=== PATIENT | female | born 1955 | race Caucasian/White ===

== ENCOUNTER 2016-05-28 20:56 | Inpatient (IN) | payer MEDICARE, MEDICAID ==
--- NOTE | 2016-05-28 21:02 | ED Physician Chart ---
Chief Complaint/HPI - Patient Information Date Seen:: 05/28/16 Time Seen:: 21:00 Chief Complaint:: cough History of Present Illness:: 60-year-old female history of COPD, [facility] a [facility] rehabilitation with acute, constant, worse at night, cough 6 weeks. Has associated shortness of breath and throat pain with coughing fits. Also has associated headache. Has had some dark blood in her mucus after a coughing fit. Allergies:: Allergies Allergy/AdvReac Type Severity Reaction Status Date / Time cefazolin Allergy Verified 10/26/15 13:47 Penicillins [PCN] Allergy Verified 10/26/15 13:47 silver sulfadiazine Allergy Verified 10/26/15 13:47 [From Silvadene] Sulfa (Sulfonamide Allergy Verified 10/26/15 13:47 Antibiotics) Historian:: Patient, EMS Review:: Nurse's Note Reviewed, EMS run form Reviewed, Transfer documents Reviewed Review of Systems - Review of Systems Other: Complete system review otherwise unremarkable except as noted in history of present illness. Past Medical History - Past Medical History Past Medical History: HTN, Asthma/COPD Family History: None Social History: Non Smoker, No Alcohol, No Drug Use, Care Facility Surgical History: , other (multiple skin grafts) Psychiatricy History: None Medication: Reviewed Family Medical History - Family Member Mother History Unknown: Yes Ethnicity: Non- Living Status: Unknown Hx Family Cancer: (Unknown) Hx Family Coronary Artery Disease: (Unknown) Hx Family Congestive Heart Failure: (Unknown) Hx Family Hypertension: (Unknown) Hx Family Stroke: (Unknown) Hx Family Diabetes: (Unknown) Hx Family Seizures: (Unknown) Hx Family Dementia: (Unknown) Hx Family AIDS: (Unknown) Hx Family HIV: No Hx Family COPD: (Unknown) Hx Family Hepatitis: (Unknown) Hx Family Psychiatric Problems: (Unknown) Hx Family Tuberculosis: (Unknown) Physical Exam - Physical Examination Other:: INITIAL VITAL SIGNS: Reviewed by me GENERAL: Alert and interactive. In moderate respiratory distress with coughing fits. HEAD: Head is normocephalic and atraumatic EYES: EOMI. PERRL. No scleral icterus. No conjunctival injection ENT: Moist mucous membranes. NECK: Supple. No masses. Full range of motion RESPIRATORY: No tachypnea. Prolonged expiratory phase bilaterally with wet sounding cough on deep inspiration. No wheezing, rales, or rhonchi CV: Regular rate and rhythm. No murmurs, rubs, or gallops ABDOMEN: Soft, non-distended, non-tender. No guarding. No rebound. No masses. EXTREMITIES: No deformity. No cyanosis. No edema. SKIN: Warm and dry. No obvious rashes. NEUROLOGIC: Alert and oriented. Face is symmetric. Speech is normal. Moves all extremities equally. Motor and sensory distally intact. Labs/Radiology/EKG Results - Lab Results Results: Lab Results 05/28/16 05/28/16 05/28/16 Range/Units 21:58 21:58 21:58 WBC 9.0 (4.8-10.8) Th/cmm RBC 4.21 (3.80-5.10) Mil/cmm Hgb 12.0 (11.7-15.5) gm/dL Hct 35.5 D (35.0-45.0) % MCV 84.3 (81-100) fl MCH 28.5 (27.0-31.0) pg MCHC Differential 33.8 (28.0-36.0) pg RDW 13.5 (11.5-20.0) % Plt Count 217 (150-400) Th/cmm MPV 9.1 fl Neutrophils % 46.8 (40.0-80.0) % Lymphocytes % 35.4 (20.0-50.0) % Monocytes % 9.3 (2.0-10.0) % Eosinophils % 7.8 H (0.0-5.0) % Basophils % 0.7 (0.0-2.0) % PT 9.4 L (9.5-11.5) SECONDS INR 0.90 (0.5-1.4) PTT (Actin FS) 25.6 L (26.0-38.0) SECONDS Sodium 136 (136-145) mEq/L Potassium 3.4 L (3.5-5.1) mEq/L Chloride 104 (98-107) mEq/L Carbon Dioxide 28.5 (21.0-31.0) mEq/L Anion Gap 6.9 L (7.0-16.0) BUN 16 (7-25) mg/dL Creatinine 0.8 (0.6-1.2) mg/dL Est GFR ( Amer) > 60.0 (>90) ml/min Est GFR (Non-Af Amer) > 60.0 ml/min BUN/Creatinine Ratio 20.0 Glucose 136 H (70-105) mg/dL Whole Bld Lactic Acid (0.60-1.99) mmol/L Calcium 9.5 (8.6-10.3) mg/dL Total Bilirubin 0.2 L (0.3-1.0) mg/dL AST 13 (13-39) U/L ALT 10 (7-52) U/L Alkaline Phosphatase 83 (34-104) U/L Creatine Kinase 60 (30-223) U/L Total Protein 6.9 (6.0-8.3) gm/dL Albumin 3.9 (3.7-5.3) gm/dL Globulin 3.0 gm/dL Albumin/Globulin Ratio 1.3 (1.0-1.8) 05/28/16 Range/Units 21:58 WBC (4.8-10.8) Th/cmm RBC (3.80-5.10) Mil/cmm Hgb (11.7-15.5) gm/dL Hct (35.0-45.0) % MCV (81-100) fl MCH (27.0-31.0) pg MCHC Differential (28.0-36.0) pg RDW (11.5-20.0) % Plt Count (150-400) Th/cmm MPV fl Neutrophils % (40.0-80.0) % Lymphocytes % (20.0-50.0) % Monocytes % (2.0-10.0) % Eosinophils % (0.0-5.0) % Basophils % (0.0-2.0) % PT (9.5-11.5) SECONDS INR (0.5-1.4) PTT (Actin FS) (26.0-38.0) SECONDS Sodium (136-145) mEq/L Potassium (3.5-5.1) mEq/L Chloride (98-107) mEq/L Carbon Dioxide (21.0-31.0) mEq/L Anion Gap (7.0-16.0) BUN (7-25) mg/dL Creatinine (0.6-1.2) mg/dL Est GFR ( Amer) (>90) ml/min Est GFR (Non-Af Amer) ml/min BUN/Creatinine Ratio Glucose (70-105) mg/dL Whole Bld Lactic Acid 1.79 (0.60-1.99) mmol/L Calcium (8.6-10.3) mg/dL Total Bilirubin (0.3-1.0) mg/dL AST (13-39) U/L ALT (7-52) U/L Alkaline Phosphatase (34-104) U/L Creatine Kinase (30-223) U/L Total Protein (6.0-8.3) gm/dL Albumin (3.7-5.3) gm/dL Globulin gm/dL Albumin/Globulin Ratio (1.0-1.8) - Radiology Results Results: Single AP VIEW Portable Chest X-ray was interpreted independently and contemporaneously by Gertrudis Davis MD: No cardiomegaly Normal mediastinum No lung infiltrates No pneumothorax No soft tissue or bony abnormalities - EKG Interpretations Comments:: 12-lead EKG Interpretation by Gertrudis Davis MD: Normal Sinus Rhythm with ventricular rate of 86 beats per minute Normal axis Normal intervals No acute ST or T wave changes. No obvious STEMI ED Septic Shock - . Is Septic Shock (SBP<90, OR Lactate>4 mmol\L) present?: No Reassessment (Disposition) - Reassessment Reassessment:: This is a 60-year-old female coming in from a nursing facility with COPD. She' s been coughing for about 6 weeks with worsening symptoms. She has associated shortness of breath with the cough. Has a prolonged expiratory phase bilaterally. Her labs look better than she looks clinically. We gave IV Solu- Medrol, DuoNeb breathing treatment, IV azithromycin, IV 500 mL normal saline bolus. Given that she's been being treated with outpatient therapy but has not been improving I discussed the case with the admitting physician. Patient is to be admitted for COPD exacerbation with failed outpatient therapy. Reassessment Condition:: Improved - Diagnosis Diagnosis:: COPD exacerbation Cephalalgia - Patient Disposition Discharge/Transfer:: Acute Care w/in this hosp Admitted to:: Med/Surg Admitting Medical Physician:: Giuseppe Ramos Time:: 21:41 Condition at Disposition:: Stable
[2016-05-28] MEDS ORDERED: Azithromycin 500 MG in Sodium Chloride 0.9% 250 ML IV ONE (21:04)
[2016-05-28] MEDS ORDERED: Albuterol/Ipratropium Neb 3 ML AERS HHN ONE ×2 (21:04→21:16)
[2016-05-28] MEDS ORDERED: Sodium Chloride 0.9% 500 ML IV ONE (21:06)
[2016-05-28] MEDS ORDERED: Codeine/Promethazine Susp 5 mL UDC PO STA (21:22)
[2016-05-28] MEDS ORDERED: Codeine/Promethazine Susp 5 mL UDC ONE (21:49)
[2016-05-28 22:12] LABS: % BASOPHILS 0.7 % (0.0-2.0); % EOSINOPHILS 7.8 % (0.0-5.0); % LYMPHOCYTES 35.4 % (20.0-50.0); % MONOCYTES 9.3 % (2.0-10.0); % NEUTROPHILS 46.8 % (40.0-80.0); MEAN CELL VOLUME 84.3 fl (81-100); MEAN CORPUSCULAR HEMOGLOBIN 28.5 pg (27.0-31.0); MEAN CORPUSCULAR HGB CONC 33.8 pg (28.0-36.0); MEAN PLATELET VOLUME 9.1 fl; NEUTROPHILE ABSOLUTE 4.2 Th/cmm (1.8-8.0); PLATELET COUNT 217 Th/cmm (150-400); RED BLOOD COUNT 4.21 Mil/cmm (3.80-5.10); RED CELL DISTRIBUTION WIDTH 13.5 % (11.5-20.0)
[2016-05-28 22:13] LABS: HEMATOCRIT 35.5 % (35.0-45.0)
[2016-05-28 22:20] LABS: INR 0.9 (0.5-1.4); PROTHROMBIN TIME (TEST) 9.4 SECONDS (9.5-11.5)
[2016-05-28] MEDS ORDERED: Fleet Enema 135 mL RC PRN (22:20)
[2016-05-28] MEDS ORDERED: Magnesium Hydroxide (MOM) 30 mL UDC PO PRN (22:20)
[2016-05-28] MEDS ORDERED: Magnesium Citrate 1.75 GM/300 mL Bottle PO PRN (22:20)
[2016-05-28] MEDS ORDERED: Albuterol Nebulizer 2.5mg/3mL HHN PRN (22:20)
[2016-05-28] MEDS ORDERED: Hydrocodone/APAP 5mg/325mg Tab PO PRN (22:20)
[2016-05-28] MEDS ORDERED: [UNRECOGNIZED DRUG - OTHER] PO PRN (22:20)
[2016-05-28] MEDS ORDERED: LEVALBUTEROL HCL 0.63 MG IH PRN (22:20)
[2016-05-28 22:25] LABS: ALB/GLOB RATIO 1.3 (1.0-1.8); ALKALINE PHOSPHATASE 83 U/L (34-104); ANION GAP 6.9 (7.0-16.0); BILIRUBIN,TOTAL 0.2 mg/dL (0.3-1.0); BUN - UREA NITROGEN 16 mg/dL (7-25); CALCIUM SERUM 9.5 mg/dL (8.6-10.3); CARBON DIOXIDE 28.5 mEq/L (21.0-31.0); CHLORIDE 104 mEq/L (98-107); CREATININE - SERUM 0.8 mg/dL (0.6-1.2); GLUCOSE 136 mg/dL (70-105); POTASSIUM SERUM 3.4 mEq/L (3.5-5.1); SGOT 13 U/L (13-39); SGPT/ALT 10 U/L (7-52); SODIUM SERUM 136 mEq/L (136-145)
[2016-05-28 22:58] VITALS: BP 135/70
[2016-05-28] MEDS ORDERED: Pneumococcal Vaccine 0.5 mL Vial IM ONE (23:16)
--- NOTE | 2016-05-29 04:44 | Admit Criteria Form ---
Admit Criteria Forms - Admit Criteria Diagnosis: COPD Clinical Indications for Admission to Inpatient Care (Place 'X' for any and all applicable criteria): Admission is indicated for ANY ONE of the following (1)(2)(3): [X ]I. Acute exacerbation by high-risk comorbidity (e.g., pneumonia, dysrhythmia, heart failure, pleural effusion, pneumothorax) or severe underlying COPD (e.g., steroid dependent) [ ]II. Inpatient admission required rather than observation care (see Chronic Obstructive Pulmonary Disease: Observation Care) because of ANY ONE of the following: [ ]a) New or pre-existing signs or symptoms of COPD (eg, dyspnea or Tachypnea at rest or with minimal activity) that persist despite outpatient and observation care treatment [ ]b) New-onset hypoxemia (room air SaO2 less than 90%, PO2 less than 60 mm Hg (8.0 kPa)) that persists despite outpatient and observation care treatment [ ]c) Worsening of pre-existing hypoxemia (eg, new or increased requirement for supplemental oxygen to maintain oxygenation at baseline level) that persists despite outpatient and observation care treatment, with oxygen treatment needs performable only in acute inpatient setting [ ]d) Hypercarbia (PCO2 greater than 40 mm Hg (5.3 kPa))-induced respiratory acidosis (pH less than 7.35) that persists despite outpatient and observation care treatment [ ]e) Supplemental oxygen or respiratory treatments for over 24 hours that are performable only in acute inpatient setting [ ]f) Chest tube placement with active evacuation (e.g., suction, drainage) (5) [ ]g) Other condition, treatment or monitoring requiring inpatient admission [ ]III. Planned invasive surgical or diagnostic procedures requiring acute- care hospitalization [ ]IV. Acute respiratory failure (e.g., uncompensated hypercarbia, severe hypoxemia) [ ]V. Severe comorbid condition (e.g., severe steroid myopathy, acute vertebral fracture) that has acutely worsened pulmonary function [ ]. Confusion state, lethargy, obtundation, stupor or coma Extended stay beyond goal length of stay may be needed for (31)(32): [ ]a ) Respiratory Failure. [ ]b) Severe or persisting hypoxemia or hypercarbia [ ]c) Severe or persistent dyspnea [ ]d) Comorbidities (e.g. chronic heart failure, atrial fibrillation with rapid response, pneumonia) [ ]e) Malnutrition The original [facility] content created by [facility] has been revised. The portions of the content which have been revised are identified through the use of italic text or in bold, and [facility] has neither reviewed nor approved the modified material. All other unmodified content is copyright [facility]. Please see references footnoted in the original [facility] edition 2016 Admit Criteria Met?: Yes
[2016-05-29] MEDS ORDERED: Potassium Chloride 20 mEq ER Tab PO ONE (06:38)
[2016-05-29] MEDS ORDERED: Hydrocodone/APAP 5mg/325mg Tab PO PRN (06:57)
[2016-05-29] MEDS ORDERED: Magnesium Citrate 1.75 GM/300 mL Bottle PO PRN (07:01)
[2016-05-29 07:14] LABS: % BASOPHILS 1.4 % (0.0-2.0); % EOSINOPHILS 0.5 % (0.0-5.0); % LYMPHOCYTES 12.7 % (20.0-50.0); % MONOCYTES 0.6 % (2.0-10.0); % NEUTROPHILS 84.8 % (40.0-80.0); HEMATOCRIT 39.2 % (35.0-45.0); HEMOGLOBIN 13.1 gm/dL (11.7-15.5); MEAN CELL VOLUME 84.8 fl (81-100); MEAN CORPUSCULAR HEMOGLOBIN 28.4 pg (27.0-31.0); MEAN CORPUSCULAR HGB CONC 33.5 pg (28.0-36.0); MEAN PLATELET VOLUME 9.1 fl; NEUTROPHILE ABSOLUTE 7.7 Th/cmm (1.8-8.0); PLATELET COUNT 265 Th/cmm (150-400); RED BLOOD COUNT 4.62 Mil/cmm (3.80-5.10); RED CELL DISTRIBUTION WIDTH 13.6 % (11.5-20.0); WHITE BLOOD COUNT 9.1 Th/cmm (4.8-10.8)
[2016-05-29 08:06] LABS: ALB/GLOB RATIO 1.3 (1.0-1.8); ALKALINE PHOSPHATASE 93 U/L (34-104); BILIRUBIN,TOTAL 0.3 mg/dL (0.3-1.0); BUN - UREA NITROGEN 17 mg/dL (7-25); BUN/CREATININE RATIO 18.9; CALCIUM SERUM 9.4 mg/dL (8.6-10.3); CARBON DIOXIDE 24.7 mEq/L (21.0-31.0); CHLORIDE 103 mEq/L (98-107); CREATININE - SERUM 0.9 mg/dL (0.6-1.2); GLUCOSE 189 mg/dL (70-105); POTASSIUM SERUM 3.7 mEq/L (3.5-5.1); SGOT 16 U/L (13-39); SGPT/ALT 13 U/L (7-52); SODIUM SERUM 136 mEq/L (136-145)
[2016-05-29] MEDS: Calcium Carb/Vit D 500 mg/200 U Tab PO SCH (08:32)
[2016-05-29] MEDS: Fluticasone Propionate 0.05mg/Actuation 16gm Nasal Spray NS SCH ×2 (08:33→16:32)
[2016-05-29] MEDS: Ferrous Sulfate 325 MG TAB PO SCH (08:33)
--- NOTE | 2016-05-29 08:58 | History & Physical ---
CHIEF COMPLAINT: Cough for the past 6 weeks. HISTORY OF PRESENT ILLNESS: This is a 60-year-old female with history of COPD, was noted to have increased shortness of breath, coughing worse at night while at the shelter facility. The patient was subsequently sent to [facility] ER for evaluation and treatment. While in the ER, the patient had a chest x-ray, which was negative for pneumonia or consolidation. Her labs, initially white count was 9.0, hemoglobin 12.0, hematocrit 35.5, platelets 217. Chem-7, sodium 136, potassium 3.4, chloride 104, bicarbonate 28, BUN 16, creatinine 0.8, glucose 136. The patient has a history of COPD, also history of generalized anxiety. States that she has been having some shortness of breath for the past couple of weeks. The patient was subsequently admitted for further evaluation and treatment. ALLERGIES: CEFAZOLIN, PENICILLIN, SULFA, AND SILVER SULFADIAZINE. FAMILY HISTORY: Noncontributory. REVIEW OF SYSTEMS: Essentially normal with the exception of the above complaints. PAST MEDICAL HISTORY: Includes hypertension, asthma, COPD, generalized anxiety. FAMILY HISTORY: Noncontributory. PHYSICAL EXAMINATION: VITAL SIGNS: Temperature 96.9, pulse 87, respiration 18, blood pressure 145/84. GENERAL: This is a 60-year-old female, well developed, well nourished, appears her stated age. HEENT: Normocephalic, atraumatic. Pupils equal, round, react to light and accommodation. Extraocular muscles intact. Ears: TMs intact. NECK: Supple, good range of motion, no thyromegaly, no lymphadenopathy. CARDIOVASCULAR: Regular rate and rhythm. No murmurs, rubs, clicks. LUNGS: Decreased breath sounds noted at the bases. ABDOMEN: Soft, nontender, nondistended. Bowel sounds are active in all 4 quadrants. No rebound tenderness, no rigidity, no guarding. EXTREMITIES: No clubbing, cyanosis or edema. Pedal pulses intact. ASSESSMENT: Chronic obstructive pulmonary disease, acute exacerbation. PLAN: The patient to be started on IV azithromycin 500 mg daily and Solu-Medrol 80 mg IV q.12h. Order pulmonary consult with Dr. Justice Acosta. We will continue the patient's current home medications. The patient also given one dose of K-Dur due to low potassium of 3.4. We will repeat BMP for tomorrow. JOB# [id number]
--- NOTE | 2016-05-29 09:16 | Diagnostic Imaging Report ---
Portable chest x-ray HISTORY: Pain The heart appears enlarged. No focal pulmonary processes. No hilar or mediastinal abnormalities. IMPRESSION: 1. No acute focal pulmonary processes 2. Cardiomegaly
[2016-05-29] MEDS: Morphine Sulfate 2 mg/mL 1mL Syr IVP PRN ×2 (14:03→20:51)
[2016-05-29 15:01] LABS: URINE BILIRUBIN NEGATIVE (NEGATIVE); URINE COLOR STRAW; URINE GLUCOSE (UA) 250 mg/dL (NEGATIVE); URINE KETONE NEGATIVE (NEGATIVE)
[2016-05-29 15:03] LABS: URINE BACTERIA NONE SEEN /hpf (NONE SEEN); URINE BLOOD NEGATIVE (NEGATIVE); URINE EPITHELIAL CELLS NONE SEEN /lpf (FEW); URINE PH 8.5; URINE PROTEIN NEGATIVE (NEGATIVE); URINE RBC NONE SEEN /hpf (0-5); URINE UROBILINOGEN 0.2 E.U./dL (0.2 - 1.0); URINE WBC NONE SEEN /hpf (0-5)
[2016-05-29] MEDS: Pantoprazole 40 mg/Packet PO SCH (16:38)
[2016-05-29] MEDS: methylPREDNISolone SS 40 mg Vial IV SCH ×2 (16:38→22:00)
[2016-05-29] MEDS: Levofloxacin 500mg/100mL 500 MG/100 ML BAG IV SCH (17:41)
[2016-05-29] MEDS: Budesonide 0.5 Mg/2 mL Ud HHN SCH (19:36)
[2016-05-29] MEDS: Albuterol/Ipratropium Neb 3 ML AERS HHN SCH ×2 (19:36→23:28)
[2016-05-29] MEDS ORDERED: Azithromycin 500 MG in Sodium Chloride 0.9% 250 ML IV SCH (22:00)
[2016-05-29 22:52] LABS: URINE BILIRUBIN NEGATIVE (NEGATIVE); URINE BLOOD NEGATIVE (NEGATIVE); URINE COLOR YELLOW; URINE GLUCOSE (UA) NEGATIVE (NEGATIVE); URINE KETONE NEGATIVE (NEGATIVE)
[2016-05-29 22:53] LABS: URINE BACTERIA FEW /hpf (NONE SEEN); URINE EPITHELIAL CELLS FEW /lpf (FEW); URINE PH 6.5; URINE PROTEIN TRACE mg/dL (NEGATIVE); URINE RBC 0-2 /hpf (0-5); URINE UROBILINOGEN 0.2 E.U./dL (0.2 - 1.0); URINE WBC 0-2 /hpf (0-5)
[2016-05-30] MEDS: Albuterol/Ipratropium Neb 3 ML AERS HHN SCH ×6 (03:24→22:32)
[2016-05-30] MEDS: Morphine Sulfate 2 mg/mL 1mL Syr IVP PRN ×4 (04:48→23:28)
[2016-05-30] MEDS: methylPREDNISolone SS 40 mg Vial IV SCH ×3 (04:48→21:36)
[2016-05-30] MEDS ORDERED: Promethazine DM 6.25/15mg-5mL 5 ML SYR PO PRN (05:28)
[2016-05-30] MEDS: Pantoprazole 40 mg/Packet PO SCH ×2 (06:36→16:07)
[2016-05-30] MEDS: Budesonide 0.5 Mg/2 mL Ud HHN SCH ×2 (07:21→19:28)
[2016-05-30 07:32] LABS: ALB/GLOB RATIO 1.3 (1.0-1.8); ALKALINE PHOSPHATASE 83 U/L (34-104); ANION GAP 9.8 (7.0-16.0); BILIRUBIN,TOTAL 0.3 mg/dL (0.3-1.0); BUN - UREA NITROGEN 27 mg/dL (7-25); CALCIUM SERUM 9.6 mg/dL (8.6-10.3); CARBON DIOXIDE 26.5 mEq/L (21.0-31.0); CHLORIDE 105 mEq/L (98-107); CREATININE - SERUM 0.9 mg/dL (0.6-1.2); GLUCOSE 180 mg/dL (70-105); POTASSIUM SERUM 4.3 mEq/L (3.5-5.1); SGOT 11 U/L (13-39); SGPT/ALT 11 U/L (7-52); SODIUM SERUM 137 mEq/L (136-145)
[2016-05-30] MEDS: Fluticasone Propionate 0.05mg/Actuation 16gm Nasal Spray NS SCH ×2 (09:01→16:07)
[2016-05-30] MEDS: Calcium Carb/Vit D 500 mg/200 U Tab PO SCH (09:02)
[2016-05-30] MEDS: Ferrous Sulfate 325 MG TAB PO SCH (09:02)
--- NOTE | 2016-05-30 09:48 | Diagnostic Imaging Report ---
CT scan of the chest without intravenous contrast HISTORY: Shortness of breath, pneumonia Total DLP equals 371 CTDI equals 11.7 Axial sections were obtained from a level above the clavicles down to level below the diaphragm. The overall heart size appears normal. Normal-sized lymph nodes are seen within the mediastinum. Evaluation of the hilar structures is limited due to the absence of intravenous contrast. No definite abnormalities. There is very subtle mild faint infiltrate within the right perihilar/right upper lobe region. Subtle pneumonia cannot be excluded. Mild accentuation of interstitial markings seen within the lingular region of the left lung. No other focal processes. No discrete abnormal masses or nodules. No pleural fluid is seen. Mild degenerative changes noted within the spine. IMPRESSION: 1. Very subtle mild faint infiltrate within the right perihilar/right upper lobe regions. Subtle pneumonia cannot be excluded. Clinical correlation needed. Mild accentuation of interstitial markings seen within the lingular region of the left lung.
--- NOTE | 2016-05-30 09:49 | Diagnostic Imaging Report ---
Lumbar spine (3 views) HISTORY: Pain Alignment is normal. Minimal narrowing of the L4-5 interspace. Mild diffuse degenerative changes are seen with spur formation noted about the endplates of all vertebrae. No other focal lesions. IMPRESSION: 1. Mild diffuse degenerative changes
--- NOTE | 2016-05-30 14:27 | Consultation ---
REASON FOR CONSULTATION: History of mood disorder. REFERRING PHYSICIAN: Dr. Giuseppe Ramos. CONSULTING PHYSICIAN: Dr. Eren House. CHIEF COMPLAINT: "My anxiety fluctuates based on my pain." HISTORY OF PRESENT ILLNESS: The patient is a 60-year-old female with a previous history of mood disorder who reports that the medications which included Seroquel and Elavil, has helped a lot with her mood. In the past, she reports had expressed a lot of unstable mood, irritability, aggression and also depression, but since the medications have been adjusted, she reported she has been doing very well without any complications. She denies any suicidal or homicidal ideation. She does report some mild anxiety and also fluctuations of mood depending on her back pain that is currently being addressed. Denies any auditory or visual hallucinations. No OCD. No PTSD symptoms. Denies any hypomanic or manic symptoms. PAST MEDICAL HISTORY: Includes acute exacerbation of COPD, arthritis, hypothyroidism, generalized anxiety and COPD. MEDICATION: A list of medication includes ____, penicillin, sulfa and Silvadene. PAST PSYCHIATRIC HISTORY: History of schizoaffective depressive type. FAMILY HISTORY: Noncontributory. SOCIAL HISTORY: The patient reports she has been sober for 2 years. She has been living in a sober living for about 2 years. She denies any recent alcohol or drug use. Denies any sexual, physical or verbal abuse. LABORATORY DATA: Labs were reviewed. PHYSICAL EXAMINATION: Per medical doctor. CURRENT MEDICATIONS: The patient is on trazodone 150 mg at nighttime, Elavil 50 mg, Ultram, naproxen, Flonase and Seroquel 300 mg twice a day. MENTAL STATUS EXAMINATION: She is well-groomed, calm, cooperative, engaging, normal speech, anxious, congruent, linear, goal-oriented, no suicidal or homicidal ideation. Awake and alert x 3. No evidence of ____ delusion. Has good insight, judgment and impulse control. ____ of suicidal and homicidal risk is low. No ideation, no plan and no intent ____. ASSESSMENT AND PLAN: The patient is a 60-year-old with a history of schizoaffective depressive type, stabilize with current medication regimen. After discussing the risks and benefit, allergy with current medication of Elavil and Seroquel and narcotic ____, the patient reports she has been on these medications for many years and reports since the medication have been at this current dosage, she reports her mood has been stabilized. She does not want any changes to her medication since this is the best she has ever felt in regard to her mood. PRIMARY DIAGNOSIS: Schizoaffective depressive type. SECONDARY DIAGNOSIS: None. MEDICAL DIAGNOSES: Acute exacerbation of chronic obstructive pulmonary disease, severe back pain, arthritis, hypothyroidism and generalized anxiety. RECOMMENDATIONS: 1. ____ 5150. 2. Continue with trazodone, Seroquel and Elavil. 3. Provide supportive therapy. 4. Discussed safety plan and coping skills. 5. We will continue to follow along ____ medical team. JOB# [id number]
--- NOTE | 2016-05-30 14:44 | Progress Notes ---
PULMONARY CONSULTATION NOTE REASON FOR CONSULTATION: Persistent coughing and shortness of breath. CONSULT NOTE: This is a 60-year-old female who lives in a convalescent home practically wheelchair to bedridden for last 2 years on account of status post knee surgery and then she could not walk, significant morbid obesity as well as pyogenic ____ chronic with multiple skin lesions and multiple skin grafts. The patient states she has been coughing for last couple of weeks and getting more worse with some bronchorrhea occasionally yellow color without any hemoptysis. As the patient's symptoms of coughing got more worse, the patient was subsequently brought to the hospital as the patient's routine care in the convalescent home did not help her. She has some episode of wheezing. No chest pain. No dyspeptic symptoms and occasional swelling of the legs. The patient is very minimal ambulatory with some help. The patient has been labeled as "COPD," but the patient never smoked. She has lost some weight, could not quantify it, questionable snoring. PAST MEDICAL HISTORY: Smoking history is nil. She may have 10 years in indirect secondhand smoking. History of hypertension and asthma ALLERGIC HISTORY: To CEPHALOSPORIN, PENICILLIN, SULFA, AND SILVER SULFADIAZINE. FAMILY HISTORY: None. She has 2 children and they were okay. WORK HISTORY: The patient is disabled for a while. PHYSICAL EXAMINATION: GENERAL: This is a short-statured, middle-aged, slightly heavy set looking female, awake, alert, oriented, not in any acute distress and has quite a bit of coughing at the time of her exam. Not in any acute distress on exam. VITAL SIGNS: Temperature is 96.7, blood pressure ____, respirations in 20s, and saturation is in 90s on room air. HEENT: Examination of the head is essentially unremarkable. Pupils appear to be equal and reacting to light. Conjunctivae are slightly pallor. Oral cavity shows small oropharyngeal opening. NECK: Extremely short. No nodes in the neck could be palpated. CHEST: Shows scattered rhonchi with generalized diminished air entry. HEART: Distant. ABDOMEN: Shows protuberant, soft, and nontender. EXTREMITIES: Shows a lot of skin lesions, probably from pyogenic ____ skin lesion that she claims to have it, but appears to have good pulsations. LABORATORY DATA: The patient's pertinent laboratory; chest x-ray shows some haziness in left base, not too sure this is infiltrate or normal finding. White count is 9.1. The patient's electrolytes are okay with sugar of 189. Urine is essentially unremarkable except for slightly high ____. IMPRESSION: 1. The patient has persistent coughing, most likely this is asthmatic bronchitis. 2. This could be contributed by aeroallergens and/or low-grade infection. This might have possibly complicated by gastroesophageal reflux disease. 3. Suspect underlying severe obstructive sleep apnea syndrome with morbid obesity, obesity-hypoventilation syndrome, also has a history of pyogenic ____ skin lesion history associated with morbid obesity. PLANS AND SUGGESTIONS: We will go ahead and give aggressive respiratory ____, get sputum studies. We will get inhaled steroid. We will go ahead and get a CT of chest for better evaluation. We will follow up regular chest x-ray and blood gases in next day or two to see how it is and go from there. PSYCHIATRIC# [id number]
[2016-05-30] MEDS: Levofloxacin 500mg/100mL 500 MG/100 ML BAG IV SCH (17:03)
[2016-05-30] MEDS ORDERED: methylPREDNISolone SS 40 mg Vial ONE (21:39)
--- NOTE | 2016-05-30 23:50 | Progress Notes ---
PROBLEM LIST: 1. Acute tracheobronchitis with bilateral interstitial pneumonitis. 2. Suspect obstructive sleep apnea syndrome. 3. Chronic recurrent bronchial asthma. 4. Morbid obesity with suspect obstructive sleep apnea syndrome with GE reflux. SYMPTOMS: The patient is feeling much better. No specific new symptoms____. Coughing is almost improved. No respiratory distress, etc. PHYSICAL EXAMINATION: VITAL SIGNS: Temperature is 98.1, blood pressure is 104/64, saturation 98 on 2 L of oxygen. CHEST: Shows occasional rhonchi with diminished air entry. HEART: Regular. ABDOMEN: Soft, nontender. EXTREMITIES: Shows no peripheral edema. LABORATORY DATA: The patient's electrolytes are okay and CT of the chest shows some patchy interstitial pneumonitis bilaterally, though very faint. ASSESSMENT: 1. The patient is clinically improving, acute respiratory bronchitis. 2. Mild patchy interstitial infiltrate. PLANS AND SUGGESTIONS: We will go ahead and continue current treatment or we will await for another day or two before can be discharged and go from there. JOB# [id number]
[2016-05-31] MEDS: Albuterol/Ipratropium Neb 3 ML AERS HHN SCH ×3 (03:31→10:49)
[2016-05-31] MEDS: methylPREDNISolone SS 40 mg Vial IV SCH ×2 (05:23→13:38)
[2016-05-31] MEDS: Budesonide 0.5 Mg/2 mL Ud HHN SCH (06:44)
[2016-05-31 07:06] LABS: MEAN CORPUSCULAR HEMOGLOBIN 29.1 pg (27.0-31.0); MEAN CORPUSCULAR HGB CONC 34.3 pg (28.0-36.0); MEAN PLATELET VOLUME 10.3 fl; RED BLOOD COUNT 4.11 Mil/cmm (3.80-5.10)
[2016-05-31 07:28] LABS: ALB/GLOB RATIO 1.4 (1.0-1.8); ALKALINE PHOSPHATASE 69 U/L (34-104); ANION GAP 11.6 (7.0-16.0); BILIRUBIN,TOTAL 0.3 mg/dL (0.3-1.0); BUN - UREA NITROGEN 34 mg/dL (7-25); BUN/CREATININE RATIO 37.8; CALCIUM SERUM 9.4 mg/dL (8.6-10.3); CHLORIDE 104 mEq/L (98-107); CREATININE - SERUM 0.9 mg/dL (0.6-1.2); GLUCOSE 177 mg/dL (70-105); POTASSIUM SERUM 4.6 mEq/L (3.5-5.1); SGOT 11 U/L (13-39); SGPT/ALT 11 U/L (7-52); SODIUM SERUM 138 mEq/L (136-145)
[2016-05-31 08:17] LABS: PLATELET COUNT 194 Th/cmm (150-400); WHITE BLOOD COUNT 14.4 Th/cmm (4.8-10.8)
[2016-05-31] MEDS: Calcium Carb/Vit D 500 mg/200 U Tab PO SCH (08:21)
[2016-05-31] MEDS: Pantoprazole 40 mg/Packet PO SCH (08:21)
[2016-05-31] MEDS: Ferrous Sulfate 325 MG TAB PO SCH (08:21)
[2016-05-31 08:59] LABS: ABG SOURCE Arterial; BE(B) 0.5 mEq/L (-3.0-3.0); HCO3 25.3 mEq/L (20.0-26.0)
[2016-05-31 09:00] LABS: CRITICAL VALUES REPORTED BY SH; FIO2 21
[2016-05-31 09:14] LABS: BAND NEUTROPHILE 2 % (0-10); NEUTROPHILS 84 % (40-80); TOTAL CELLS COUNTED 100
[2016-05-31 09:15] LABS: PLATELET ESTIMATE ADEQUATE (NORMAL); PLATELET MORPHOLOGY NORMAL (NORMAL)
[2016-05-31] MEDS: Fluticasone Propionate 0.05mg/Actuation 16gm Nasal Spray NS SCH (09:41)
[2016-05-31] MEDS: Morphine Sulfate 2 mg/mL 1mL Syr IVP PRN (10:23)
--- NOTE | 2016-05-31 23:07 | Progress Notes ---
PROBLEM LIST: 1. Acute asthmatic bronchitis. 2. Small bilateral patchy pneumonitis. 3. Suspect obstructive sleep apnea syndrome. 4. Morbid obesity, suspect obesity hypoventilation syndrome as well as chronic biogenic ____ skin lesion, chronic. SYMPTOMS: Nil. The patient's coughing is almost gone. No respiratory distress, etc. No much coughing. PHYSICAL EXAMINATION: VITAL SIGNS: Temperature is 98.5, blood pressure 148/78, saturation is 95. NECK: Veins could not be visualized. Good bilateral carotid upstroke. CHEST: Shows diminished air entry with occasional rhonchi. HEART: Regular. EXTREMITIES: Shows chronic edematous changes; otherwise, unremarkable. LABORATORY DATA: White count is 14,000, hemoglobin 12. ABG is okay on room air. ASSESSMENT: The patient clinically appears to be much better improved. PLANS AND SUGGESTIONS: We will switch steroid to p.o. and hopefully, repeat chest x-ray. If it is stable, may be tomorrow can be discharged and go from there. JOB# [id number]
--- NOTE | 2016-06-01 00:07 | Progress Notes ---
Case was discussed with staff of the patient, reviewed records. The patient was by ____ by Dr. House, prescribed the medication Elavil trazodone. The patient has become stable, emotional, and she reports to sleep well, eat well. She has been sober for 2 years. No suicidal ideation or homicidal ideation. No paranoia. She has her own outpatient psychiatrist. Recommended to continue medications. Follow up with the psychiatrist upon discharge. Thank you very much for allowing me to participate in care of this most interesting lady. JOB# [id number]
--- NOTE | 2016-06-01 18:09 | Discharge Summary ---
ATTENDING PHYSICIAN: Giuseppe Ramos D.O. PRELIMINARY DIAGNOSES: 1. Chronic obstructive pulmonary disease with acute exacerbation. 2. Possible obstructive sleep apnea. 3. Hypokalemia. 4. Morbid obesity. 5. Gastroesophageal reflux disease. 6. Generalized anxiety disorder. 7. Schizoaffective depressive type. DISCHARGE DIAGNOSES: 1. Acute tracheobronchitis with bilateral interstitial pneumonitis. 2. Obstructive sleep apnea. 3. Chronic bronchitis with acute exacerbation. 4. Hypokalemia now resolved. 5. Morbid obesity. 6. Gastroesophageal reflux disease. 7. Generalized anxiety disorder. 8. Schizoaffective depressive type. HISTORY OF PRESENT ILLNESS: This is a 60-year-old female with history of COPD, was noted to have increased shortness of breath, coughing worse [facility]. The patient was subsequently transferred to [facility] ER for evaluation and treatment. While in the ER, the patient had a chest x-ray which revealed interstitial lung disease. Her labs initial white count was 9.0, hemoglobin 12.0, hematocrit 35.5 and platelets 217. Chem-7: Sodium 136, potassium 3.4, chloride 104, bicarbonate 28, BUN 16, creatinine 0.8 and glucose 136. PAST MEDICAL HISTORY: Includes COPD, generalized anxiety disorder. The patient was subsequently admitted for further evaluation and treatment. HOSPITAL COURSE: The patient was seen and evaluated by Dr. Justice Acosta who had ordered a CT of her chest, which revealed subtle, mild, faint infiltrate within the right perihilar and right upper lobe region with mild accentuation of the interstitial markings seen within the lingular region of the left lung. The patient was treated with IV Levaquin and given Solu-Medrol IV. The patient improved during her hospital stay. She was subsequently discharged in stable condition, was to continue her regular medication, given a course of Levaquin 500 once daily for 7 days and Medrol Dosepak. [facility]# [id number]
== END 2016-05-31 16:00 | disposition home or self-care (01) | DRG 191 ==
LOC: ER 20:56 → MSI 21:40
PROVIDERS: ADMIT Family Medicine; ATTEND Family Medicine
DX: J44.1 Chronic obstructive pulmonary disease with (acute) exacerbation (principal); J84.114 Acute interstitial pneumonitis; J84.89 Other specified interstitial pulmonary diseases; Z68.41 Body mass index [BMI] 40.0-44.9, adult; J20.9 Acute bronchitis, unspecified; F25.1 Schizoaffective disorder, depressive type; J45.909 Unspecified asthma, uncomplicated; M19.90 Unspecified osteoarthritis, unspecified site; E03.9 Hypothyroidism, unspecified; F41.1 Generalized anxiety disorder; E66.01 Morbid (severe) obesity due to excess calories; E87.6 Hypokalemia; M54.5 Low back pain; K21.9 Gastro-esophageal reflux disease without esophagitis; M51.36 Other intervertebral disc degeneration, lumbar region; G47.33 Obstructive sleep apnea (adult) (pediatric); Z88.3 Allergy status to other anti-infective agents; Z88.0 Allergy status to penicillin; Z88.2 Allergy status to sulfonamides; Z88.8 Allergy status to other drugs, medicaments and biological substances
CPT/HCPCS: 36415-UA; 36600-90; 71010-TC; 71250-TC; 72100-TC; 80053-TC; 81001-TC; 82550-TC; 82803-TC; 83036-90; 83605; 83735-TC; 85007-TC; 85025-TC; 85027-TC; 85610-TC; 85730-TC; 87070; 93005; 94640; 94760; 96375; J0456; J1885; J1956; J2270; J2920; J2930; J7040; Z7610